=== PATIENT | male | born 2005 | race Two or more races ===

== ENCOUNTER 2025-04-12 13:10 | Inpatient (IN) ==
[2025-04-12] MEDS: SODIUM CHLORIDE 0.9% 1,000 ML IV ONE (13:41)
[2025-04-12 13:57] LABS: Appearance Urine Clear (Clear); Bacteria Urine Automated None Seen (None Seen); Cast Urine Automated 0-2 /lpf (0-2); Epithelial Cell Urine Auto 0-2 /hpf (0-2); Glucose Urine UA Negative (Negative); RBC Urine Automated 0-2 /hpf (0-2); WBC Urine Automated 0-5 /hpf (0-5)
[2025-04-12 14:20] LABS: Hematocrit (blood only) 41.6 % (42.0-52.0); Hemoglobin 13.3 g/dl (14.0-18.0); Immature Granulocytes # (auto) 0.02 K/uL (0.01-0.20); Immature Granulocytes % (auto) 0.4 %; Mean Corpuscular Hemoglobin 25.9 pg (25.0-34.0); Mean Corpuscular Volume 80.9 fL (80.0-100.0); Platelet Count 198 K/uL (130-400); RDW Standard Deviation 41.1 fL (36.4-46.3); Red Blood Count 5.14 M/uL (4.70-6.10); White Blood Count 5.29 K/ul (4.8-10.8)
[2025-04-12 14:38] LABS: Anion Gap 3 (3-11); Blood Urea Nitrogen 10 mg/dl (6-23); Calcium 8.6 mg/dl (8.6-10.3); Carbon Dioxide 30 mmol/L (21-32); Chloride 105 mmol/L (98-107); Creatinine Clr Calc Pharmacy 107.2 ml/min; Glucose 93 mg/dl (70-99(Fasting)); Potassium 3.7 mmol/L (3.5-5.1); Sodium 138 mmol/L (136-145)
[2025-04-12 15:23] LABS: Alanine Aminotransferase 393 U/L (7-52); Albumin Globulin Ratio 1.5 (0.9-2); Alkaline Phosphatase 54 U/L (34-104); Bilirubin,Total 0.6 mg/dl (0.2-1.0); Creatine Kinase > 100000 U/L (30-223); Globulin 2.6 gm/dl (2.5-4.0); Total Protein 6.5 gm/dl (6.0-8.3)
[2025-04-12] MEDS: SODIUM CHLORIDE 0.9% 1,000 ML IV SCH ×2 (15:34→17:06)
--- NOTE | 2025-04-12 16:44 | History & Physical Report ---
Date of Service April 12, 2025 Assessment & Plan (1) Rhabdomyolysis: (2) Depression: (3) BRITTNEE on CPAP: Plan Patient is a 19-year-old male with past medical history of depression who was admitted for management of rhabdomyolysis. Rhabdomyolysis - CK > 100,000 at time of admission - No new medications, OTC meds, substance use, alcohol abuse, or trauma - Possibly due to exertion given recent resumption of exercise and recent increase in intensity, but will add U/Tox and hold Wellbutrin on the chance that this could be a possible cause or a contributor to current presentation - Aggressive IV fluid hydration; s/p 2L NSS bolus in ED followed by mIVF w/ LR @ 200 ml/hr; can administer additional bolus fluids if needed - Monitor am CMP to assess renal function and electrolytes; am CK Transaminitis - No recent acetaminophen use or other hepatotoxic medications - Patient states he had a separate incident a few weeks ago where he was told he had elevated LFTs and had hepatitis panel done which was negative at the time - Likely related to current rhabdo, but will add acute hepatitis panel to am labs and monitor daily CMP - If fail to improve despite aggressive fluid administration or if new RUQ pain or other concerning sxs develop, could consider RUQ US and/or acetaminophen level Depression - Hold wellbutrin as mentioned above BRITTNEE on CPAP - Noted to be mild, per patient - Continue CPAP Dispo: Admit to Med/Tele VTE ppx: Lovenox History of Present Illness Chief Complaint: Brown urine Primary Care Provider: [facility] Patient is a 19-year-old male with past medical history of depression who came to the emergency department after noting brown urine yesterday. On Saturday evening, patient was exercising with weight lifting, centering on his legs. He states that he thinks he increased intensity of his exercise on this day, and after this, he was feeling increased muscle stiffness on his bilateral lower extremities. The next day (04/11/25), he noted that his urine looked brown in color. Denies having any accompanying abdominal pain, chest pain, shortness of breath, nausea/vomiting/diarrhea, or no other associated symptoms. Other than bupropion XR 150 mg every morning started 2 to 3 weeks ago, he does not take any other chronic medications and does not have other chronic conditions. Denies any history of any surgeries, trauma, falls, or other inciting events that he can recall. Denies any alcohol use in the last 3 to 4 months, tobacco use, or use of any substances. Denies having any previous episodes with the symptoms. Home Medications Medication Instructions Recorded Confirmed Type bupropion HCl 150 mg 24 hr tablet, 150 mg PO DAILY 04/12/25 04/12/25 History extended release doxycycline hyclate 100 mg capsule 100 mg PO DIRECTED 04/12/25 04/12/25 History Past Med/Surg History Problem List (Updated 04/12/25 @ 17:56 by Sheyla Menendez MD) BRITTNEE on CPAP Depression Rhabdomyolysis Social History Smoking Status: Never smoker Preferred Language: Venezuelan Feels Safe at Home: Yes Physical Exam Physical Exam: General: AAOx3, afebrile, NAD CV: RRR, no r/m/g Pulm: CTA b/l, normal respiratory effort, no respiratory distress GI: soft, NT, ND Extremities: no swelling or calf tenderness b/l Skin: well healed horizontal scars in right posterior forearm, no other skin lacerations or open wounds Results & Data Results & Data Vital Signs (Past 12 Hours) Vital Signs Temp Pulse Pulse Resp BP BP Pulse Ox 04/12/25 16:00 146/82 H 04/12/25 15:57 67 20 98 04/12/25 15:11 75 18 140/75 97 04/12/25 13:42 97 04/12/25 13:14 36.8 C 87 20 145/86 H 98 O2 Del Method 04/12/25 16:00 04/12/25 15:57 Room Air 04/12/25 15:11 Room Air 04/12/25 13:42 Room Air 04/12/25 13:14 Room Air Supervising Physician Co-Signing Physician Notes Attending attestation Pt seen and examined in concert with Dr. Shon Olvera. In agreement with the documented findings as noted in the resident documentation with any exceptions or additions as noted here. Gradually improving myalgias most significant in the bilateral UE, though mildly in the LE and chest. On detailed history, patient denies any other health changes, illness, alcohol/substance use. Hydrates approx 120oz of water per day. Did just start going back to the gym. Did just start on bupropion 2 weeks ago. VS as noted. On examination, S1/S2 nl RRR no MCG. CTAB. Abd NT/ND BS+ve. Visible swelling and difficulty with ROM of the bilateral UE worse on the right 2/2 pain including difficulties with full extension of the RUE at the elbow, though able to do it with enough time. Rhabdomyolysis - continue IVF and trend CK, BMP daily. Hold bupropion due to potential involvement and consider restart with primary care following discharge. Else see resident documentation as noted. Resident Activity Tracking Resident Involvement: Resident Care Provided Care Provided: Adult Hospital Medicine
--- NOTE | 2025-04-12 17:51 | Emergency Department Note ---
History of Present Illness General Chief complaint: Arm Pain Stated complaint: CONCERN OF RHABDO, PAIN IN ARMS AND SOME SWELLING Time Seen by Provider: 04/12/25 13:26 History of Present Illness Provider complaint: "I think I have rhabdo" Maximum Pain Intensity: 6 19-year-old male presents emergency department stating "I think I have rhabdo". Patient reports she was doing a workout lifting weights and he noticed increasing arm pain. He noticed some blood in his urine and dark-colored urine. He denies any falls trauma or crush injury. Home Medications Medication Instructions Recorded Confirmed Type bupropion HCl 150 mg 24 hr tablet, 150 mg PO DAILY 04/12/25 04/12/25 History extended release doxycycline hyclate 100 mg capsule 100 mg PO DIRECTED 04/12/25 04/12/25 History Past Med/Surg History Problem List (Updated 04/12/25 @ 17:43 by Sheyla Menendez MD) Depression Rhabdomyolysis Social History Smoking Status: Never smoker Preferred Language: Spanish Feels Safe at Home: Yes Physical Exam Vital Signs Vital Signs - 24 hr 04/12/25 13:14 04/12/25 13:42 04/12/25 15:11 Temperature 36.8 C Temperature Source Temporal Artery Scan Pulse Rate 87 Pulse Rate [Apical] 75 Pulse Rate from SpO2 Sensor Respiratory Rate 20 18 Respiratory Effort / Characteristics Non-Labored Spontaneous Respiratory Depth Normal Respiratory Pattern Regular Blood Pressure 145/86 H Blood Pressure [Left Arm] 140/75 Blood Pressure Mean 105 Blood Pressure Mean [Left Arm] 96 Blood Pressure Position Sitting Pulse Oximetry 98 97 97 Oxygen Delivery Method Room Air Room Air Room Air Sepsis Recent Fever Within 48 Hours No Sepsis New/Unexplained Change in Mental Status N/A Sepsis Action Taken by Nursing No Action Required 04/12/25 15:57 04/12/25 16:00 Temperature Temperature Source Pulse Rate 67 Pulse Rate [Apical] Pulse Rate from SpO2 Sensor 64 Respiratory Rate 20 Respiratory Effort / Characteristics Respiratory Depth Respiratory Pattern Blood Pressure 146/82 H Blood Pressure [Left Arm] Blood Pressure Mean 97 Blood Pressure Mean [Left Arm] Blood Pressure Position Pulse Oximetry 98 Oxygen Delivery Method Room Air Sepsis Recent Fever Within 48 Hours Sepsis New/Unexplained Change in Mental Status Sepsis Action Taken by Nursing Physical Exam GENERAL: oriented to person, place, and time. appears well-developed and well- nourished. HENT: Exam performed. - Head: Normocephalic and atraumatic. EYES: Conjunctivae and EOM are normal. Right eye exhibits no discharge. Left eye exhibits no discharge. No scleral icterus. NECK: Normal range of motion. Neck supple. No JVD present. CV: Normal rate, regular rhythm, normal heart sounds and intact distal pulses. There is no peripheral edema. Palpable radial pulses bue. PULM/CHEST: Effort normal and breath sounds normal. No respiratory distress. No stridor. no wheezes. no rales. ABD: The abdomen is soft. There is no tenderness. NEURO: Motor and sensation grossly intact. MUSC: Tenderness on palpation of bilateral biceps. Palpable radial pulses bilateral upper extremities. Palpable DP and PT pulses. Compartments of the upper extremity are soft. SKIN: Skin is warm and dry. He is not diaphoretic. PSYCH: normal mood and affect. Behavior is normal. Judgment and thought content normal. Course Course 1326: The patient was evaluated in room C10. A complete history and physical exam was performed Cardiac monitoring: An order was placed for continuous cardiac monitoring. The monitor shows a rate of 70 with sinus rhythm interpreted by ga 1535: Vital signs stable. Labs are significant for creatinine kinase greater than 100,000. Renal function is unremarkable. Patient will be aggressively hydrated and admitted to medicine. Administered Medications Discontinued Medications Sodium Chloride (Nss) 1,000 mls @ 999 mls/hr IV .Q1H1M ONE Stop: 04/12/25 14:26 Last Infusion: 04/12/25 15:12 Dose: Infused Documented By: Admin: 04/12/25 13:41 Dose: 999 mls/hr Documented By: SAMANTHA Sodium Chloride (Nss) 1,000 mls @ 999 mls/hr IV .Q1H1M TANJA Stop: 04/12/25 17:30 Last Admin: 04/12/25 17:06 Dose: Not Given Documented By: Infusion: 04/12/25 17:06 Dose: Infused Documented By: Admin: 04/12/25 15:34 Dose: 999 mls/hr Documented By: LIA Medical Decision Making Laboratory Data Attestation: I reviewed the patient's lab results. 04/12/25 14:01 04/12/25 14:01 Lab Results 04/12/25 04/12/25 Range/Units 13:40 14:01 WBC 5.29 (4.8-10.8) K/ul RBC 5.14 (4.70-6.10) M/uL Hgb 13.3 L (14.0-18.0) g/dl Hct 41.6 L (42.0-52.0) % MCV 80.9 (80.0-100.0) fL MCH 25.9 (25.0-34.0) pg MCHC 32.0 (32.0-36.0) g/dL RDW Std Deviation 41.1 (36.4-46.3) fL RDW Coeff of Rox 14.0 (11.5-14.5) % Plt Count 198 (130-400) K/uL MPV 11.2 (9.4-12.4) fL Immature Gran % (Auto) 0.4 % Neut % (Auto) 54.8 % Lymph % (Auto) 29.1 % Sunflower % (Auto) 12.3 % Eos % (Auto) 2.8 % Baso % (Auto) 0.6 % Neut # (Auto) 2.90 (1.40-6.50) K/uL Lymph # (Auto) 1.54 (1.20-3.40) K/uL Sunflower # (Auto) 0.65 H (0.11-0.59) K/uL Eos # (Auto) 0.15 (0.00-0.50) K/uL Baso # (Auto) 0.03 (0.00-0.20) K/uL Immature Gran # (Auto) 0.02 (0.01-0.20) K/uL Sodium 138 (136-145) mmol/L Potassium 3.7 (3.5-5.1) mmol/L Chloride 105 (98-107) mmol/L Carbon Dioxide 30 (21-32) mmol/L Anion Gap 3 (3-11) BUN 10 (6-23) mg/dl Creatinine 1.22 (0.6-1.4) mg/dl Est Cr Clr Drug Dosing 107.2 ml/min eGFR 86.50 BUN/Creatinine Ratio 8.2 L (10-20) Glucose 93 (70-99(Fasting)) mg/dl Calcium 8.6 (8.6-10.3) mg/dl Total Bilirubin 0.6 (0.2-1.0) mg/dl AST 1109 H (13-39) U/L ALT 393 H (7-52) U/L Alkaline Phosphatase 54 (34-104) U/L Total Creatine Kinase > 789475 H (30-223) U/L Total Protein 6.5 (6.0-8.3) gm/dl Albumin 3.9 (3.4-5.0) gm/dl Globulin 2.6 (2.5-4.0) gm/dl Albumin/Globulin Ratio 1.5 (0.9-2) Urine Color Yellow Urine Appearance Clear (Clear) Urine pH 6.0 (4.5-7.5) Ur Specific [place] 1.015 (1.000-1.030) Urine Protein 2+ H (Negative) Urine Glucose (UA) Negative (Negative) Urine Ketones Trace H (Negative) Urine Blood 3+ H (Negative) Urine Nitrite Negative (Negative) Urine Bilirubin Negative (Negative) Urine Urobilinogen Negative (Negative) Ur Leukocyte Esterase Trace H (Negative) Urine WBC (Auto) 0-5 (0-5) /hpf Urine RBC (Auto) 0-2 (0-2) /hpf U Hyaline Cast (Auto) 0-2 (0-2) /lpf U Epithel Cells (Auto) 0-2 (0-2) /hpf Urine Bacteria (Auto) None Seen (None Seen) Urine Comment [facility] Narrative 1326: The patient was evaluated in room C10. A complete history and physical exam was performed Cardiac monitoring: An order was placed for continuous cardiac monitoring. The monitor shows a rate of 70 with sinus rhythm interpreted by me 1535: Vital signs stable. Labs are significant for creatinine kinase greater than 100,000. Renal function is unremarkable. Patient will be aggressively hydrated and admitted to medicine. Impression & Plan Rhabdomyolysis Discharge Plan Visit Data Chief Complaint: Arm Pain Stated Complaint: CONCERN OF RHABDO, PAIN IN ARMS AND SOME SWELLING ED Provider: Lenny Kahn Discharge Problem: Rhabdomyolysis Patient Disposition: Admitted As Inpatient Condition: Fair Forms Stand Alone Forms: [facility] [place] [employer] Prescriptions Prescriptions: No Action doxycycline hyclate 100 mg capsule 100 mg PO DIRECTED Patient Comments: 04/12- Filled 04/12 30 day supply #20 bupropion HCl 150 mg tablet extended release 24 hr 150 mg PO DAILY Referrals Referrals: [facility] [Primary Care Provider] -
[2025-04-12] MEDS ORDERED: MELATONIN 3 MG TAB PO PRN (18:16)
[2025-04-12] MEDS ORDERED: POLYETHYLENE (MIRALAX) 17 GM PACK PO PRN (18:16)
[2025-04-12] MEDS ORDERED: ONDANSETRON INJ 2 MG/ML 2 ML VIAL IV PRN (18:16)
[2025-04-12] MEDS: LACTATED RINGER'S 1,000 ML IV SCH (18:20)
[2025-04-12 18:46] LABS: Amphetamines+Metham, Urine Neg (Neg); MDMA (Ecstacy), Urine Pos (Neg); Marijuana, Urine Neg (Neg)
[2025-04-13 07:43] LABS: Anion Gap 4 (3-11); Blood Urea Nitrogen 7 mg/dl (6-23); Calcium 8.6 mg/dl (8.6-10.3); Carbon Dioxide 29 mmol/L (21-32); Chloride 107 mmol/L (98-107); Creatinine Clr Calc Pharmacy 122.0 ml/min; Glucose 79 mg/dl (70-99(Fasting)); Potassium 3.8 mmol/L (3.5-5.1); Sodium 140 mmol/L (136-145)
[2025-04-13 08:06] LABS: Hep B Surface Ag with confirm Negative (Negative)
[2025-04-13 08:11] LABS: Hep C Ab Rflx HepCQuant RNA Negative (Negative)
[2025-04-13 09:26] LABS: Alanine Aminotransferase 417 U/L (7-52); Albumin Globulin Ratio 1.4 (0.9-2); Alkaline Phosphatase 61 U/L (34-104); Bilirubin,Total 0.9 mg/dl (0.2-1.0); Creatine Kinase > 100000 U/L (30-223); Globulin 2.5 gm/dl (2.5-4.0); Magnesium 1.8 mg/dl (1.7-2.4); Total Protein 6.1 gm/dl (6.0-8.3)
[2025-04-13] MEDS: LACTATED RINGER'S 2,000 ML IV ONE (11:01)
--- NOTE | 2025-04-13 11:48 | Hospitalist Progress Note ---
Date of Service April 13, 2025 Assessment & Plan (1) Rhabdomyolysis: (2) Depression: (3) BRITTNEE on CPAP: Plan Patient is a 19-year-old male with past medical history of depression who was admitted for management of rhabdomyolysis. Rhabdomyolysis - CK > 100,000 at time of admission, currently still > 100,000 - Only new medication was Wellbutrin that was started a week or two ago. No OTC meds, substance use, alcohol abuse, or trauma - Possibly due to exertion given recent resumption of exercise and recent increase in intensity. Will discontinue Wellbutrin due to case reports of wellbutrin causing rhabdomyolysis. - Aggressive IV fluid hydration; s/p 2L NSS bolus in ED followed by mIVF w/ LR @ 200 ml/hr; - Administered 3L Lactated Ringers bolus in hospital beth; can administer additional bolus fluids if needed, will continue mIVF w/ LR @ 200ml/hr - Monitor am CMP to assess renal function and electrolytes; am CK Transaminitis - No recent acetaminophen use or other hepatotoxic medications - Patient states he had a separate incident a few weeks ago where he was told he had elevated LFTs and had hepatitis panel done which was negative at the time - Likely related to current rhabdo, but will add acute hepatitis panel to am labs and monitor daily CMP - If fail to improve despite aggressive fluid administration or if new RUQ pain or other concerning sxs develop, could consider RUQ US and/or acetaminophen level Depression - Discontinue wellbutrin as mentioned above BRITTNEE on CPAP - Noted to be mild, per patient - Continue CPAP Dispo: Admit to Med/Tele VTE ppx: Lovenox Admission and Anticipated Discharge Date Admission Date: April 12, 2025 Supervising Physician Co-Signing Physician Notes Attending attestation Pt seen and examined in concert with Dr. Romano. In agreement with the documented findings as noted in the resident documentation with any exceptions or additions as noted here. Feeling of increased swelling of the bilateral UE with diminished discomfort and improved ROM subjectively without new symptoms. VS as noted. On examination, S1/S2 nl RRR no MCG. CTAB. Abd NT/ND BS+ve. Persistent swelling and difficulty with ROM of the bilateral UE worse on the right 2/2 pain including difficulties with full extension of the RUE at the elbow, mildly improved Rhabdomyolysis - continue IVF and trend CK, BMP daily. D/C'd bupropion due to potential involvement and consider alternatives with primary care following discharge. Else see resident documentation as noted. Subjective Patient was admitted to the ED due to arm swelling and pain, and dark colored urine with concerns of rhabdomyolysis. Patient stated he was working out and noticed arm swelling on Saturday and dark urine on Saturday night. He also said he started Wellbutrin a week or two ago. Patient is doing well today and is sleeping, eating, and drinking well. Patient noticed that his urine has been getting more yellow today than previously. When reassessing patient this afternoon after IV fluid bolus, stated that his biceps are swollen but nowhere else on his body is swollen. Review of Systems Review of Systems: As per HPI Physical Exam Constitutional: WD/WN, vitals as above Respiratory: normal respiratory effort, lungs clear to auscultation Cardiovascular: RRR, no murmur, no edema Skin: old scars on left arm Results & Data Results & Data Vital Signs (Past 12 Hours) Vital Signs Temp Pulse Pulse Resp BP Pulse Ox O2 Del Method 04/13/25 11:28 36.8 C 60 18 132/73 97 Room Air 04/13/25 07:24 36.6 C 78 16 135/66 94 Room Air 04/13/25 05:41 56 L 04/13/25 03:42 36.7 C 57 L 20 121/65 95 Room Air 04/13/25 00:13 36.9 C 64 18 124/73 100 Room Air
[2025-04-13] MEDS: LACTATED RINGER'S 1,000 ML IV ONE (15:15)
[2025-04-14] MEDS: Nursing to Pharmacy Communication SCH (08:22)
[2025-04-14 09:17] LABS: Alanine Aminotransferase 446.0 U/L (7-52); Albumin Globulin Ratio 1.3 (0.9-2); Alkaline Phosphatase 62.0 U/L (34-104); Anion Gap 5.0 (3-11); Bilirubin,Total 0.9 mg/dl (0.2-1.0); Blood Urea Nitrogen 6.0 mg/dl (6-23); Calcium 9.0 mg/dl (8.6-10.3); Carbon Dioxide 29.0 mmol/L (21-32); Chloride 105.0 mmol/L (98-107); Creatinine Clr Calc Pharmacy 128.0 ml/min; Globulin 2.8 gm/dl (2.5-4.0); Glucose 79.0 mg/dl (70-99(Fasting)); Potassium 3.7 mmol/L (3.5-5.1); Sodium 139.0 mmol/L (136-145); Total Protein 6.5 gm/dl (6.0-8.3)
--- NOTE | 2025-04-14 10:41 | Hospitalist Progress Note ---
Date of Service April 14, 2025 Assessment & Plan (1) Rhabdomyolysis: (2) Depression: (3) BRITTNEE on CPAP: Plan Patient is a 19-year-old male with past medical history of depression who was admitted for management of rhabdomyolysis. Rhabdomyolysis - CK > 100,000 at time of admission, currently still > 100,000. Ordered CK this AM. - Only new medication was Wellbutrin that was started a week or two ago. No OTC meds, substance use, alcohol abuse, or trauma - Possibly due to exertion given recent resumption of exercise and recent increase in intensity. Will discontinue Wellbutrin due to case reports of wellbutrin causing rhabdomyolysis. - Aggressive IV fluid hydration; s/p 2L NSS bolus in ED followed by mIVF w/ LR @ 200 ml/hr; - Administered 3L Lactated Ringers bolus in hospital beth (04/13); can administer additional bolus fluids if needed, will continue mIVF w/ LR @ 200ml/hr - Administered 1L LR bolus today (04/14) due to elevated CK - Monitor am CMP to assess renal function and electrolytes; am CK Transaminitis - No recent acetaminophen use or other hepatotoxic medications - Patient states he had a separate incident a few weeks ago where he was told he had elevated LFTs and had hepatitis panel done which was negative at the time - Likely related to current rhabdo, but will add acute hepatitis panel to am labs and monitor daily CMP - If fail to improve despite aggressive fluid administration or if new RUQ pain or other concerning sxs develop, could consider RUQ US and/or acetaminophen level Depression - Discontinue wellbutrin as mentioned above BRITTNEE on CPAP - Noted to be mild, per patient - Continue CPAP Dispo: Admit to Med/Tele VTE ppx: Lovenox Admission and Anticipated Discharge Date Admission Date: April 12, 2025 Supervising Physician Co-Signing Physician Notes Attending attestation Pt seen and examined in concert with Dr. Romano. In agreement with the documented findings as noted in the resident documentation with any exceptions or additions as noted here. Improving swelling of the bilateral UE with diminished discomfort and improved ROM subjectively without new symptoms. VS as noted. On examination, S1/S2 nl RRR no MCG. CTAB. Abd NT/ND BS+ve. Swell ing and difficulty with ROM of the bilateral UE worse on the right 2/2 pain including difficulties with full extension of the RUE at the elbow, improving. Rhabdomyolysis - continue IVF and trend CK, BMP daily. D/C'd bupropion due to potential involvement and consider alternatives with primary care following discharge. Continue current trend. Else see resident documentation as noted. Subjective Patient was admitted to the ED due to arm swelling and pain, and dark colored urine with concerns of rhabdomyolysis. Patient stated he was working out and noticed arm swelling on Saturday and dark urine on Saturday night. He also said he started Wellbutrin a week or two ago. Patient is doing well today and is sleeping, eating, drinking, and urinating well. Patient says his biceps are still swollen but the rest of his body is not swollen. Patient denies N/V/D and chest pain. Review of Systems Review of Systems: All systems reviewed & are unremarkable except as noted in HPI & below As per HPI Physical Exam Constitutional: WD/WN, vitals as above Respiratory: normal respiratory effort, lungs clear to auscultation Cardiovascular: RRR, no murmur, no edema Skin: old scars on left arm Results & Data Results & Data Vital Signs (Past 12 Hours) Vital Signs Temp Pulse Pulse Resp BP BP Pulse Ox 04/14/25 07:19 36.8 C 65 18 124/73 97 04/14/25 06:45 53 L 04/14/25 04:00 36.6 C 58 L 18 142/72 H 97 O2 Del Method 04/14/25 07:19 Room Air 04/14/25 06:45 04/14/25 04:00 Room Air
[2025-04-14] MEDS: LACTATED RINGER'S 1,000 ML IV ONE (13:19)
[2025-04-14 14:32] LABS: Hepatitis A Antibody IgM NON-REACTIVE (NON-REACTIVE); Hepatitis B Core Antibody IgM NON-REACTIVE (NON-REACTIVE)
[2025-04-15 07:05] LABS: Anion Gap 5.0 (3-11); Blood Urea Nitrogen 7.0 mg/dl (6-23); Calcium 9.0 mg/dl (8.6-10.3); Carbon Dioxide 29.0 mmol/L (21-32); Chloride 105.0 mmol/L (98-107); Creatinine Clr Calc Pharmacy 121.9 ml/min; Glucose 85.0 mg/dl (70-99(Fasting)); Potassium 3.8 mmol/L (3.5-5.1); Sodium 139.0 mmol/L (136-145)
[2025-04-15 07:50] LABS: Alanine Aminotransferase 415.0 U/L (7-52); Albumin Globulin Ratio 1.4 (0.9-2); Alkaline Phosphatase 61.0 U/L (34-104); Bilirubin,Total 0.7 mg/dl (0.2-1.0); Creatine Kinase 80800.0 U/L (30-223); Globulin 2.7 gm/dl (2.5-4.0); Total Protein 6.4 gm/dl (6.0-8.3)
--- NOTE | 2025-04-15 15:19 | Hospitalist Progress Note ---
Date of Service April 15, 2025 Assessment & Plan (1) Rhabdomyolysis: (2) Depression: (3) BRITTNEE on CPAP: Plan Patient is a 19-year-old male with past medical history of depression who was admitted for management of rhabdomyolysis. Rhabdomyolysis - CK > 100,000 at time of admission, currently > 80,800 . - Only new medication was Wellbutrin that was started a week or two ago. No OTC meds, substance use, alcohol abuse, or trauma - Possibly due to exertion given recent resumption of exercise and recent increase in intensity. Will discontinue Wellbutrin due to case reports of wellbutrin causing rhabdomyolysis. - Aggressive IV fluid hydration; s/p 2L NSS bolus in ED followed by mIVF w/ LR @ 200 ml/hr; - Administered 3L Lactated Ringers bolus in hospital beth (04/13); can administer additional bolus fluids if needed, will continue mIVF w/ LR @ 200ml/hr - Administered 1L LR bolus today (04/14) due to elevated CK - Monitor am CMP to assess renal function and electrolytes; am CK Transaminitis - No recent acetaminophen use or other hepatotoxic medications - Patient states he had a separate incident a few weeks ago where he was told he had elevated LFTs and had hepatitis panel done which was negative at the time - Likely related to current rhabdo, but will add acute hepatitis panel to am labs and monitor daily CMP - If fail to improve despite aggressive fluid administration or if new RUQ pain or other concerning sxs develop, could consider RUQ US and/or acetaminophen level Depression - Discontinue wellbutrin as mentioned above BRITTNEE on CPAP - Noted to be mild, per patient - Continue CPAP Dispo: Admit to Med/Tele VTE ppx: Lovenox Admission and Anticipated Discharge Date Admission Date: April 12, 2025 Supervising Physician Co-Signing Physician Notes Attending attestation Pt seen and examined in concert with Dr. Romano. In agreement with the documented findings as noted in the resident documentation with any exceptions or additions as noted here. Improving swelling of the bilateral UE with diminished discomfort and improved ROM subjectively without new symptoms. VS as noted. On examination, S1/S2 nl RRR no MCG. CTAB. Abd NT/ND BS+ve. Swelling and difficulty with ROM of the bilateral UE worse on the right 2/2 pain including difficulties with full extension of the RUE at the elbow, improving. Rhabdomyolysis - continue IVF and trend CK, BMP daily. D/C'd bupropion due to potential involvement and consider alternatives with primary care following discharge. Continue current trend. Else see resident documentation as noted. Subjective Patient was admitted to the ED due to arm swelling and pain, and dark colored urine with concerns of rhabdomyolysis. Patient stated he was working out and noticed arm swelling on Saturday and dark urine on Saturday night. He also said he started Wellbutrin a week or two ago. Patient is doing well today and is sleeping, eating, drinking, and urinating well. Patient reports the swelling in his biceps have gone down a bit. Review of Systems Review of Systems: as per subjective HPI Constitutional: as per Subjective / HPI Genitourinary: + as per Subjective / HPI Physical Exam Constitutional: WD/WN, vitals as above Respiratory: normal respiratory effort, lungs clear to auscultation Cardiovascular: RRR, no murmur, no edema Results & Data Results & Data Vital Signs (Past 12 Hours) Vital Signs Temp Pulse Pulse Resp BP Pulse Ox Pulse Ox 04/15/25 13:00 98 04/15/25 11:30 36.6 C 59 L 12 119/63 98 04/15/25 07:49 36.9 C 92 H 12 127/66 99 04/15/25 06:45 75 04/15/25 04:00 36.9 C 57 L 18 134/76 97 O2 Del Method O2 Del Method 04/15/25 13:00 Room Air 04/15/25 11:30 Room Air 04/15/25 07:49 Room Air 04/15/25 06:45 04/15/25 04:00 Room Air
[2025-04-16 00:37] LABS: MDA negative; MDEA negative; MDMA (Ecstasy) Urine, Confirm negative
[2025-04-16 07:39] LABS: Alanine Aminotransferase 362.0 U/L (7-52); Albumin Globulin Ratio 1.4 (0.9-2); Alkaline Phosphatase 61.0 U/L (34-104); Anion Gap 5.0 (3-11); Bilirubin,Total 0.7 mg/dl (0.2-1.0); Blood Urea Nitrogen 7.0 mg/dl (6-23); Calcium 8.8 mg/dl (8.6-10.3); Carbon Dioxide 29.0 mmol/L (21-32); Chloride 105.0 mmol/L (98-107); Creatinine Clr Calc Pharmacy 129.0 ml/min; Globulin 2.7 gm/dl (2.5-4.0); Glucose 85.0 mg/dl (70-99(Fasting)); Potassium 3.6 mmol/L (3.5-5.1); Sodium 139.0 mmol/L (136-145); Total Protein 6.4 gm/dl (6.0-8.3)
--- NOTE | 2025-04-16 09:58 | Hospitalist Progress Note ---
Date of Service April 16, 2025 Assessment & Plan (1) Rhabdomyolysis: (2) Depression: (3) BRITTNEE on CPAP: Plan Patient is a 19-year-old male with past medical history of depression who was admitted for management of rhabdomyolysis. Rhabdomyolysis - CK > 100,000 at time of admission, currently > 46,950. - Only new medication was Wellbutrin that was started a week or two ago. No OTC meds, substance use, alcohol abuse, or trauma - Possibly due to exertion given recent resumption of exercise and recent increase in intensity. Will discontinue Wellbutrin due to case reports of wellbutrin causing rhabdomyolysis. - Aggressive IV fluid hydration; s/p 2L NSS bolus in ED followed by mIVF w/ LR @ 200 ml/hr; - Administered 3L Lactated Ringers bolus in hospital beth (04/13); can administer additional bolus fluids if needed, will continue mIVF w/ LR @ 200ml/hr - Administered 1L LR bolus (04/14) due to elevated CK - Monitor am CMP to assess renal function and electrolytes; am CK Transaminitis - No recent acetaminophen use or other hepatotoxic medications - Patient states he had a separate incident a few weeks ago where he was told he had elevated LFTs and had hepatitis panel done which was negative at the time - Likely related to current rhabdo, but will add acute hepatitis panel to am labs and monitor daily CMP - Current AST and ALT labs are 502 and 362 respectfully and trending downwards. - If fail to improve despite aggressive fluid administration or if new RUQ pain or other concerning sxs develop, could consider RUQ US and/or acetaminophen level Depression - Discontinue wellbutrin as mentioned above BRITTNEE on CPAP - Noted to be mild, per patient - Continue CPAP Dispo: Admit to Med/Tele VTE ppx: Lovenox Admission and Anticipated Discharge Date Admission Date: April 12, 2025 Supervising Physician Co-Signing Physician Notes ATTESTATION I also saw the patient and confirmed tate portions of the history and exam. I agree with the impression and plan in the resident documentation, and as summarized below. Upon this morning, patient resting comfortably in bed. No new complaints. Increased ROM compared to yesterday. EXAM 122/64, 55, 16, 36.6, 98% on room air Heart regular rate and rhythm Lungs clear with nonlabored respirations DATA Labs BUN 7, creatinine 1.1 Serum electrolytes unremarkable AST 502, ALT 362 CK 46, 950 IMPRESSION & PLAN Mild rhabdomyolysis Transaminitis Etiology may be linked to Wellbutrin, as there were found to be some case reports of similar He reports no previous similar episodes and the workout preceding the symptoms was not out of the ordinary for him Continue IVF Repeat labs in AM Additional per resident documentation Subjective Patient was admitted to the ED due to arm swelling and pain, and dark colored urine with concerns of rhabdomyolysis. Patient stated he was working out and noticed arm swelling on Saturday and dark urine on Saturday night. He also said he started Wellbutrin a week or two ago. Patient is doing well today and is sleeping, eating, drinking, and urinating well. Patient reports the swelling in his biceps have gone down a bit and an now reach his right shoulder with his right arm. Patient denies N/V/D and chest pain. Review of Systems Review of Systems: as per subjective HPI Physical Exam Constitutional: WD/WN, vitals as above Respiratory: normal respiratory effort, lungs clear to auscultation Cardiovascular: RRR, no murmur, no edema Results & Data Results & Data Vital Signs (Past 12 Hours) Vital Signs Temp Pulse Pulse Resp BP Pulse Ox O2 Del Method 04/16/25 07:20 36.7 C 83 16 121/71 96 Room Air 04/16/25 07:19 55 L 04/16/25 03:20 36.7 C 55 L 14 152/71 H 96 Room Air 04/15/25 23:55 36.5 C 59 L 14 128/76 98 Room Air 04/15/25 23:32 51 L
[2025-04-17 08:14] LABS: Anion Gap 6.0 (3-11); Blood Urea Nitrogen 8.0 mg/dl (6-23); Calcium 8.7 mg/dl (8.6-10.3); Carbon Dioxide 29.0 mmol/L (21-32); Chloride 107.0 mmol/L (98-107); Creatinine Clr Calc Pharmacy 125.6 ml/min; Glucose 81.0 mg/dl (70-99(Fasting)); Potassium 3.7 mmol/L (3.5-5.1); Sodium 142.0 mmol/L (136-145)
[2025-04-17 08:39] LABS: Alanine Aminotransferase 319.0 U/L (7-52); Albumin Globulin Ratio 1.4 (0.9-2); Alkaline Phosphatase 59.0 U/L (34-104); Bilirubin,Total 0.4 mg/dl (0.2-1.0); Creatine Kinase 26340.0 U/L (30-223); Globulin 2.6 gm/dl (2.5-4.0); Total Protein 6.3 gm/dl (6.0-8.3)
--- NOTE | 2025-04-17 13:24 | Hospitalist Progress Note ---
Date of Service April 17, 2025 Assessment & Plan (1) Rhabdomyolysis: (2) Depression: (3) BRITTNEE on CPAP: Plan Patient is a 19-year-old male with past medical history of depression who was admitted for management of rhabdomyolysis. Rhabdomyolysis - CK > 100,000 at time of admission, currently > 26,340. - Only new medication was Wellbutrin that was started a week or two ago. No OTC meds, substance use, alcohol abuse, or trauma - Possibly due to exertion given recent resumption of exercise and recent increase in intensity. Will discontinue Wellbutrin due to case reports of wellbutrin causing rhabdomyolysis. - Aggressive IV fluid hydration; s/p 2L NSS bolus in ED followed by mIVF w/ LR @ 200 ml/hr; - Administered 3L Lactated Ringers bolus in hospital beth (04/13); can administer additional bolus fluids if needed, will continue mIVF w/ LR @ 200ml/hr - Administered 1L LR bolus (04/14) due to elevated CK - Monitor am CMP to assess renal function and electrolytes; am CK Transaminitis - No recent acetaminophen use or other hepatotoxic medications - Patient states he had a separate incident a few weeks ago where he was told he had elevated LFTs and had hepatitis panel done which was negative at the time - Likely related to current rhabdo, but will add acute hepatitis panel to am labs and monitor daily CMP - Current AST and ALT labs are 502 and 362 respectfully and trending downwards. - If fail to improve despite aggressive fluid administration or if new RUQ pain or other concerning sxs develop, could consider RUQ US and/or acetaminophen level Depression - Discontinue wellbutrin as mentioned above BRITTNEE on CPAP - Noted to be mild, per patient - Continue CPAP Dispo: Admit to Med/Tele VTE ppx: Lovenox Admission and Anticipated Discharge Date Admission Date: April 12, 2025 Supervising Physician Co-Signing Physician Notes ATTESTATION I also saw the patient and confirmed tate portions of the history and exam. I agree with the impression and plan in the resident documentation, and as summarized below. Upon this morning, patient resting comfortably in bed. No new complaints. EXAM Vital signs as noted Heart regular rate and rhythm Lungs clear with nonlabored respirations DATA Labs BUN 8, creatinine 1.04 Serum electrolytes unremarkable AST 338, ALT 319, [place] [address] IMPRESSION & PLAN Rhabdomyolysis Transaminitis Etiology may be linked to Wellbutrin, as there were found to be some case reports of similar He reports no previous similar episodes and the workout preceding the symptoms was not out of the ordinary for him Continue IVF Repeat labs in AM If we can get him close to - or optimally below 10,000 - discharge tomorrow reasonable with outpatient labs in a few days Will check sickle cell screen given degree of CK elevation Check UA today Additional per resident documentation Subjective Patient is doing well today and is sleeping, eating, drinking well. Patient reports the swelling is gone. Patient denies N/V/D and chest pain. Review of Systems Review of Systems: per subjective HPI Physical Exam Constitutional: WD/WN, vitals as above Respiratory: normal respiratory effort, lungs clear to auscultation Cardiovascular: RRR, no murmur, no edema Results & Data Results & Data Vital Signs (Past 12 Hours) Vital Signs Temp Pulse Pulse Resp BP BP Pulse Ox 04/17/25 11:53 36.4 C L 70 104/60 99 04/17/25 08:00 04/17/25 07:58 36.5 C 68 112/63 97 04/17/25 07:20 57 L 04/17/25 03:49 36.7 C 55 L 20 104/57 L 98 O2 Del Method 04/17/25 11:53 Room Air 04/17/25 08:00 Room Air 04/17/25 07:58 Room Air 04/17/25 07:20 04/17/25 03:49 Room Air
[2025-04-17 14:40] LABS: Appearance Urine Clear (Clear); Glucose Urine UA Negative (Negative)
[2025-04-18 06:34] LABS: Anion Gap 5.0 (3-11); Blood Urea Nitrogen 7.0 mg/dl (6-23); Calcium 9.1 mg/dl (8.6-10.3); Carbon Dioxide 31.0 mmol/L (21-32); Chloride 106.0 mmol/L (98-107); Creatinine Clr Calc Pharmacy 118.1 ml/min; Glucose 85.0 mg/dl (70-99(Fasting)); Potassium 3.8 mmol/L (3.5-5.1); Sodium 142.0 mmol/L (136-145)
[2025-04-18 07:24] LABS: Alanine Aminotransferase 279.0 U/L (7-52); Albumin Globulin Ratio 1.5 (0.9-2); Alkaline Phosphatase 58.0 U/L (34-104); Bilirubin,Total 0.5 mg/dl (0.2-1.0); Creatine Kinase 16497.0 U/L (30-223); Globulin 2.6 gm/dl (2.5-4.0); Total Protein 6.4 gm/dl (6.0-8.3)
[2025-04-18 07:48] VITALS: BP 117/67; PULSE 73; RESP 16; TEMP 98.1; O2SAT 94
--- NOTE | 2025-04-18 10:23 | Discharge Summary ---
Date of Service April 18, 2025 Admission HPI Per Admitting Provider Patient is a 19-year-old male with past medical history of depression who came to the emergency department after noting brown urine yesterday. On Saturday evening, patient was exercising with weight lifting, centering on his legs. He states that he thinks he increased intensity of his exercise on this day, and after this, he was feeling increased muscle stiffness on his bilateral lower extremities. The next day (04/11/25), he noted that his urine looked brown in color. Denies having any accompanying abdominal pain, chest pain, shortness of breath, nausea/vomiting/diarrhea, or no other associated symptoms. Other than bupropion XR 150 mg every morning started 2 to 3 weeks ago, he does not take any other chronic medications and does not have other chronic conditions. Denies any history of any surgeries, trauma, falls, or other inciting events that he can recall. Denies any alcohol use in the last 3 to 4 months, tobacco use, or use of any substances. Denies having any previous episodes with the symptoms. Admission Exam Per Admitting Provider General: AAOx3, afebrile, NAD CV: RRR, no r/m/g Pulm: CTA b/l, normal respiratory effort, no respiratory distress GI: soft, NT, ND Extremities: no swelling or calf tenderness b/l Skin: well healed horizontal scars in right posterior forearm, no other skin lacerations or open wounds Principal Diagnosis Rhabdomyolysis Discharge Exam Constitutional WD/WN, vitals as above Respiratory normal respiratory effort, lungs clear to auscultation Cardiovascular RRR, no murmur, no edema Extremities: no edema Discharge Data Allergies Allergy/AdvReac Type Severity Reaction Status Date / Time No Known Allergies Allergy Verified 04/12/25 18:31 Consultations 04/12/25 15:35 ED Decision to Admit Stat Hospital Course (1) Rhabdomyolysis: (2) Depression: (3) BRITTNEE on CPAP: Plan Patient is a 19-year-old male with past medical history of depression who was admitted for management of rhabdomyolysis. Due to some case reports showing Wellbutrin causing rhabdomyolysis, we discontinued the wellbutrin. We monitored CMP labs in the morning and kidney function always looked well. Liver function tests have been high but steadily decreasing since being administered IV fluids and rest. For outpatient, follow- up with CMP and CK labs to continue to monitor if CK and liver enzymes are c ontinuing to return back to normal. Advise to not let the patient exercise or do more than just walking until labs come back to normal. We ordered a Sickle Cell Screen. Will get those results in a couple of days. Rhabdomyolysis - CK > 100,000 at time of admission, currently > 16,497. - Only new medication was Wellbutrin that was started a week or two ago. No OTC meds, substance use, alcohol abuse, or trauma - Possibly due to exertion given recent resumption of exercise and recent increase in intensity. Will discontinue Wellbutrin due to case reports of wellbutrin causing rhabdomyolysis. - Aggressive IV fluid hydration; s/p 2L NSS bolus in ED followed by mIVF w/ LR @ 200 ml/hr; - Administered 3L Lactated Ringers bolus in hospital beth (04/13); can administer additional bolus fluids if needed, will continue mIVF w/ LR @ 200ml/hr - Administered 1L LR bolus (04/14) due to elevated CK - Monitored am CMP to assess renal function and electrolytes; Current (04/17) BUN = 7, Creatine = 1.12, eGFR = 95.85, AST = 228, ALT = 279. - Liver enzymes have been steadily trending downwards since admit. Transaminitis - No recent acetaminophen use or other hepatotoxic medications - Patient states he had a separate incident a few weeks ago where he was told he had elevated LFTs and had hepatitis panel done which was negative at the time - Likely related to current rhabdo, but will add acute hepatitis panel to am labs and monitor daily CMP - (04/16) AST and ALT labs are 502 and 362 respectfully and trending downwards. - If fail to improve despite aggressive fluid administration or if new RUQ pain or other concerning sxs develop, could consider RUQ US and/or acetaminophen level Depression - Discontinue wellbutrin as mentioned above BRITTNEE on CPAP - Noted to be mild, per patient - Continue CPAP Dispo: Admit to Med/Tele VTE ppx: Lovenox Total Time Total Time Spent Total Time Spent (In Minutes): I spent 30 mins seeing the patient, reviewing lab work, and documeting today. (SHONNA) Discharge Plan Discharge Items Patient Disposition: Home - Self-Care Reason For Visit: BROWN URINE Discharge Diagnosis: Rhabdomyolosis Condition on Discharge: Good Activity: Per Instructions section Lifting: None Exercise/Sports: None Non-emergency contact: Primary Care Provider Call non-emergency contact if: your symptoms worsen and your temperature is above 101.5 Follow-up/Referrals: [facility] [Primary Care Provider] - Diet: Regular Ambulatory Orders: Creatine Kinase (Timed) Timeframe: 2 Days Location: Determined by Patient Ordered By: Chano Romano Comprehensive Metabolic Panel (Routine) Timeframe: 2 Days Location: Determined by Patient Ordered By: Chano Romano Addtl Attending Provider Instructions: You were admitted to the hospital due to arm swelling, arm pain, and dark colored urine. We provided labs and found that you had a creatine kinase value, which shows the level of muscle in your body breaking down, as above 100,000 which is at toxic levels. We provided fluids to help your kidneys wash out your body until the level came down to around 16,500. We monitored your kidneys and your liver during your stay to make sure everything was okay and they are doing well. We would recommend to drink plenty of water, Powerade, and Gatorade to help continue hydrating your body. We also recommend you get rest and to not exercise, weightlift, or drink alcohol until your labs come back normal. Please only walk until labs come back normal. However, we recommend not walking at [place] due to hot weather and possible dehydration. The labs we would like you to get at [facility] are: -Creatine Kinase -CMP (Complete Metabolic Panel) Please get these labs at around Saturday-Saturday timeframe. It was a pleasure treating you here at [facility]. Pending Studies at Discharge: Yes Studies:: Sickle Cell Screen Stand-Alone Forms: My [facility], Smoking Cessation Medications and DC Order Prescriptions: Continued doxycycline hyclate 100 mg capsule 100 mg PO DIRECTED Patient Comments: 04/12- Filled 04/12 30 day supply #20 Discontinued bupropion HCl 150 mg tablet extended release 24 hr 150 mg PO DAILY Discharge Orders: Discharge Order (Routine); Ordered 04/18/25 Ordered By: Chano Romano Admission Data Admit Date/Time: 04/12/25 16:38 Attending Provider: Willian Higgins Admit Provider: Sheyla Menendez Primary Care Provider: [facility] Other Providers: Brandt Ratliff Supervising Physician Co-Signing Physician Notes ATTESTATION I also saw the patient and confirmed tate portions of the history and exam. I agree with the impression and plan in the resident documentation, and as summarized below. Patient feels well and would like to go home. Reviewed his lab work results. CK and LFTs continues to trend down and electrolytes have remained stable and he is agreeable to outpatient follow up plan as outlined below. EXAM Vital signs as noted Heart regular rate and rhythm Lungs clear with nonlabored respirations DATA Labs BUN 7, creatinine 1.12 Serum electrolytes unremarkable AST 2288, ALT 279, [place] [address] UA negative for protein. IMPRESSION & PLAN Rhabdomyolysis Transaminitis Etiology may be linked to Wellbutrin, as there were found to be some case reports of similar He reports no previous similar episodes and the workout preceding the symptoms was not out of the ordinary for him Given parameters discussed above, safe for discharge home today Continue PO hydration Limited activity - ADLs are fine, restrict from any exercise No ETOH, no Tylenol Repeat labs Saturday next week with follow up at [facility] Sickle cell screen pending and I will follow up on results Additional per resident documentation Resident Activity Tracking Resident Involvement: Resident Care Provided Care Provided: Adult Hospital Medicine
== END 2025-04-18 12:00 | disposition home or self-care (01) | DRG 558 ==
LOC: ED 13:10 → 2W 16:38 → SUATTDRO 16:38 → 2W 17:50